=== PATIENT | female | born 1980 | race Asian ===

== ENCOUNTER 2019-12-23 20:04 | Emergency (ER) | payer OTHER ==
[~2019-12-23] VITALS: Ht 162.6 cm; Wt 68.0 kg
--- NOTE | 2019-12-23 20:26 | Emergency Room Report ---
History of Present Illness General Chief Complaint: Multiple Trauma/Fall Source: Patient Present Illness HPI 39-year-old female history of hypertension presenting for right elbow pain. She had a slip and fall at home. Injuring her right elbow. She did strike her head denies loss of consciousness and denies any headache at this time. No nausea no vomiting no vision changes. Pain in the elbow 8 out of 10 worse with movement and palpation. She declined any pain medication on arrival. Allergies: Coded Allergies: No Known Allergies (Unverified , 12/23/19) COVID-19 Screening Contact w/high risk pt: No Recent Travel to affected area: No Experienced COVID-19 symptoms?: No COVID-19 Testing performed SNAKE CHARMER: No Patient History Last Menstrual Period: 12/07 Reviewed Nursing Documentation: PMH: Agreed; PSxH: Agreed Nursing Documentation-PMH Hx Hypertension: Yes Review of Systems All Other Systems: negative except mentioned in HPI Physical Exam Vital Signs Date Time Temp Pulse Resp B/P (MAP) Pulse Ox O2 Delivery O2 Flow Rate FiO2 12/23/19 20:06 98.6 82 20 178/97 (124) 97 Room Air Sp02 EP Interpretation: reviewed, normal General Appearance: well appearing, no apparent distress Head: normocephalic, atraumatic Eyes: bilateral eye PERRL, bilateral eye EOMI ENT: hearing grossly normal, moist mucus membranes Neck: full range of motion, supple, other - No midline tenderness Respiratory: lungs clear, normal breath sounds, no rhonchi, no respiratory distress, no retraction, no wheezing Cardiovascular #1: normal peripheral pulses, regular rate, rhythm, no murmur Gastrointestinal: non tender, soft, non-distended, no guarding Musculoskeletal: other - Right elbow with full range of motion with some pain, 2+ pulses distally, tender laterally no obvious deformity Neurologic: alert, oriented x3, no focal defects Skin: normal color, warm/dry Medical Decision Making ER Course Differential diagnosis included but not limited to elbow contusion, sprain, occult radial head fracture to name a few. X-rays ordered of the elbow. Low suspicion for serious head injury including skull fracture or intracranial hemorrhage. Patient neurologically intact ambulatory and denied any headache. X-rays of the right elbow showed no acute fracture dislocation. Patient was placed in a sling. Suspect contusion versus sprain. Will discharge with rest ice analgesics. Other X-Ray Diagnostic Results Other X-Ray Diagnostic Results : X-Ray ordered: Elbow right # of Views/Limited Vs Complete: 3 View Indication: Pain Interpretation: no dislocation, no fractures Impression: No acute disease Electronically Signed by: Giovani Bolanos MD Last Vital Signs Date Time Temp Pulse Resp B/P (MAP) Pulse Ox O2 Delivery O2 Flow Rate FiO2 12/23/19 20:06 98.6 82 20 178/97 (124) 97 Room Air Disposition: HOME, SELF-CARE Condition: Stable Giovani Bolanos M.D. Dec 23, 2019 20:26
[2019-12-23 20:30] VITALS: BP 153/93
--- NOTE | 2019-12-23 21:10 | Diagnostic Imaging Report ---
EXAM: XR Right Elbow Complete, 3 or More Views CLINICAL HISTORY: PAIN TECHNIQUE: Frontal, lateral and oblique views of the right elbow. COMPARISON: No relevant prior studies available. FINDINGS: Bones/joints: Unremarkable. No acute fracture. No dislocation. Soft tissues: Unremarkable. IMPRESSION: Normal right elbow x-rays.
[2019-12-23 21:24] VITALS: BP 153/93
== END 2019-12-23 21:10 | disposition home or self-care (01) ==
LOC: EMR 20:25
DX: S50.01XA Contusion of right elbow, initial encounter (principal); I10 Essential (primary) hypertension; W01.0XXA Fall on same level from slipping, tripping and stumbling without subsequent striking against object, initial encounter; Y93.9 Activity, unspecified; Y92.019 Unspecified place in single-family (private) house as the place of occurrence of the external cause
CPT/HCPCS: 99283